=== PATIENT | female | born 1990 | race Two or more races ===

== ENCOUNTER 2016-07-14 20:43 | Emergency (ER) | payer BC, OTHER ==
[2016-07-14] MEDS ORDERED: KETOROLAC TROMETHAMINE 60 MG/2 ML VIAL ONE (21:36)
[2016-07-14] MEDS ORDERED: METOCLOPRAMIDE HCL 5 MG/ML 2ML VIAL ONE (21:36)
[2016-07-14] MEDS ORDERED: ONDANSETRON 4 MG ODT TAB ONE (21:36)
[2016-07-14] MEDS ORDERED: OLANZAPINE 5 MG TABLET ONE (21:49)
== END 2016-07-14 22:31 | disposition home or self-care (01) ==
LOC: ED 20:43
DX: G44.209 Tension-type headache, unspecified, not intractable (principal); F41.9 Anxiety disorder, unspecified; R11.2 Nausea with vomiting, unspecified
CPT/HCPCS: 99283 ×2; 96372 ×2; J2765; J1885; A9270 ×2